=== PATIENT | female | born 1995 | race Caucasian/White ===

== ENCOUNTER 2019-06-05 11:22 | Outpatient (CLI) | payer OTHER, SELFPAY ==
--- NOTE | ~2019-06-05 | US_ITS ---
US OB >= 14 weeks Fetus DATE: 06/05/2019 12:09 INDICATION: anatomy assessment TECHNIQUE: Real time and color flow imaging. Doppler analysis. COMPARISON: None FINDINGS: Live tavarez intrauterine gestation, fetus in breech presentation. There is no evidence of cerebral ventriculomegaly. The cerebellum is normal. The spine is in tact. Normal nuchal fold. Upper lip is normal. There is a four chamber heart. heart rate 148 beats per minute. There is no evidence of hydronephrosis. Fluid is demonstrated in the stomach and urinary bladder. There is a 3 vessel umbilical cord with normal insertion at abdominal wall. Posterior placenta, lower margin 3.5 cm above internal os. Subjectively normal amount of amniotic fluid. BPD: 4.32 cm; 19 weeks estimated gestational age Head circumference: 16.67 cm; 19 weeks 2 days Abdominal circumference: 13,84 cm; 19 weeks 2 days Femur length: 2.90 cm; 18 weeks 6 days Composite age by Hadlock formula: 19 weeks 1 day plus or minus 1 week 2 days; QUINTON: 10/29/2019 IMPRESSION: Composite age by Hadlock formula: 19 weeks 1 day plus or minus 1 week 2 days; QUINTON: 2019 Normal anatomy screen Reviewed, dictated and finalized at [facility]. Reviewed, dictated and finalized at [facility]. IMPRESSION: Composite age by Hadlock formula: 19 weeks 1 day plus or minus 1 w [place] 2 days; QUINTON: 10/29/2019 Normal anatomy screen
== END 2019-06-05 11:23 ==
PROVIDERS: Visit Provider Obstetrics & Gynecology
DX: Z36.9 Encounter for antenatal screening, unspecified (principal); Z3A.19 19 weeks gestation of pregnancy
CPT/HCPCS: 76805